=== PATIENT | male | born 1965 | race Caucasian/White ===

== ENCOUNTER 2020-04-22 07:54 | Emergency (ER) | payer MEDICAID ==
[~2020-04-22] VITALS: Ht 177.8 cm; Wt 131.0 kg
--- NOTE | 2020-04-22 07:59 | NUR ---
Jamie reyes in [facility] - 04/22/20 at 0759 by [email or web address] REPORT TO ROSEMARIE PALACIOS
--- NOTE | 2020-04-22 08:22 | NUR ---
pt poor historian but sts was admitted at [facility] for 1 day about 1 week ago for KS but refused recyclable materials sorter. md made aware, repeat ekg in prog iv est vss, c/o pressure and sob, took 81 mg asa at home. as
[2020-04-22] MEDS ORDERED: ASPIRIN 81 MG TABLET CHEW ONE (08:26)
[2020-04-22] MEDS ORDERED: MORPHINE SULFATE 4 MG/ML, 1ML ONE (08:29)
[2020-04-22] MEDS ORDERED: ONDANSETRON 2MG/ML, 2ML ONE (08:29)
[2020-04-22] MEDS ORDERED: MORPHINE SULFATE 4 MG/ML, 1ML IVPush PRN (08:30)
[2020-04-22] MEDS ORDERED: SODIUM CHLORIDE FLUSH 10ML SYR IVF ONE (08:30)
[2020-04-22] MEDS ORDERED: ONDANSETRON 2MG/ML, 2ML IVPush ONE (08:30)
[2020-04-22] MEDS ORDERED: ASPIRIN 81 MG TABLET CHEW PO ONE (08:30)
[2020-04-22 08:31] LABS: BASOPHILS % (AUTO) 1 % (0-1); EOSINOPHILS % (AUTO) 1 % (1-7); LYMPHOCYTES % (AUTO) 16 % (22-44); MEAN CORPUSCULAR HGB CONC 33.8 g/dL (33.2-36.2); MEAN PLATELET VOLUME 8.7 fL (7.4-10.4); MONOCYTES % (AUTO) 6 % (2-9); NEUTROPHILS % (AUTO) 76 % (42-75); PLATELET COUNT 228 x10^3/uL (130-400); RED BLOOD COUNT 4.52 x10^6/uL (4.38-5.82); RED CELL DISTRIBUTION WIDTH 13.7 % (9.4-14.8)
[2020-04-22] MEDS ORDERED: NITR0.4T28 SL (08:40)
[2020-04-22] MEDS ORDERED: AMLO-211 PO (08:40)
[2020-04-22] MEDS ORDERED: ISOS30TA8 PO (08:40)
[2020-04-22] MEDS ORDERED: ASPI-963 PO (08:40)
[2020-04-22] MEDS ORDERED: ATOR40TA78 PO (08:40)
[2020-04-22] MEDS ORDERED: METO-99 PO (08:40)
[2020-04-22] MEDS ORDERED: GLIP10TA13 PO (08:40)
[2020-04-22] MEDS ORDERED: ACET325T14 PO (08:40)
[2020-04-22] MEDS ORDERED: CLOP75TA52 PO (08:40)
[2020-04-22] MEDS ORDERED: METF500T17 PO (08:40)
[2020-04-22] MEDS ORDERED: INSU100V8 SQ (08:40)
[2020-04-22 08:44] LABS: ALANINE AMINOTRANSFERASE 43 U/L (12-78); ALBUMIN 3.8 g/dL (3.4-5.0); ANION GAP 8 mmol/L (5-15); CALCIUM 8.7 mg/dL (8.5-10.1); CHLORIDE 109 mmol/L (98-107)
--- NOTE | 2020-04-22 08:45 | NUR ---
budget coordinator at bedside. pt refusing cath. vss. nsr. no ectopy noted. meds per may. cxr clear. as
[2020-04-22 08:48] LABS: MD NO
[2020-04-22 08:49] LABS: ALKALINE PHOSPHATASE 99 U/L (45-117); BILIRUBIN,TOTAL 0.5 mg/dL (0.2-1.0); TOTAL PROTEIN 7.6 g/dL (6.4-8.2); TROPONIN I 0.019 ng/mL (0.000-0.045)
--- NOTE | 2020-04-22 09:20 | NUR ---
pt sts feels better after meds, wants to go home if labs ok, up for recheck. as
[2020-04-22 09:58] VITALS: BP 135/80
== END 2020-04-22 10:00 | disposition left against medical advice (07) ==
LOC: ED 09:31
DX: R07.2 Precordial pain (principal); I20.0 Unstable angina; R06.00 Dyspnea, unspecified; M54.5 Low back pain; R07.89 Other chest pain; R06.02 Shortness of breath; I10 Essential (primary) hypertension; E11.9 Type 2 diabetes mellitus without complications; E78.5 Hyperlipidemia, unspecified
CPT/HCPCS: 36415; 71045; 80053; 83880; 84484; 85025; 93005; 96374; 96375; 99285; J2270; J2405